=== PATIENT | female | born 1950 | race Caucasian/White ===

== ENCOUNTER → 2016-12-26 | Day surgery (SDC) | payer MEDICARE, BC ==
[~2016-12-26] MED LIST: LIDOCAINE HCL 1% 20ML VIAL (Pyxis) INJ ONE; SODIUM BICARBONATE 4.2% 5 MEQ/10 ML DISP.SYRIN IV ONE
== END | disposition home or self-care (01) ==
LOC: RAD 10:33
PROVIDERS: ATTEND Specialist
DX: E07.9 Disorder of thyroid, unspecified (principal)
CPT/HCPCS: 10022; 76942; 88172; 88173; J3490

== ENCOUNTER 2019-12-19 09:40 | Inpatient (IN) | payer MEDICARE, BC ==
[~2019-12-19] VITALS: Ht 165.1 cm; Wt 98.5 kg
[2019-12-19 10:48] LABS: BASOPHILS % 0.3 % (0.0-2.0); HEMATOCRIT. 35.3 % (36.0-48.0); HEMOGLOBIN. 12.6 g/dL (12.0-16.0); LYMPHOCYTES % 19.5 % (20.0-50.0); MEAN CORPUSCULAR HEMOGLOBIN 31.3 pg (28.0-32.0); MEAN CORPUSCULAR VOLUME 87.8 fL (81.0-99.0); MEAN PLATELET VOLUME 9.9 fl (7.4-10.4); MONOCYTES % 10.2 % (2.0-8.0); RED BLOOD CELL COUNT 4.02 mill/uL (4.2-5.4); RED CELL DISTRIBUTION WIDTH 12.9 % (11.6-14.6)
[2019-12-19 10:51] LABS: CHLORIDE 108 mEq/L (98-107); PLATELET 10 x1000/uL (130-400)
[2019-12-19 10:52] LABS: INR 1.4; PROTHROMBIN TIME 14.7 sec (9.6-11.0)
[2019-12-19 11:41] LABS: PLATELET ESTIMATE MARKEDLY DECREASED
[2019-12-19] MEDS ORDERED: DOCUSATE SODIUM 100MG CAPSULE PO PRN (13:15)
[2019-12-19] MEDS ORDERED: IPRATROPIUM/ALBUTEROL 0.5-3(2.5)MG/3ML NEB NEB PRN (13:15)
[2019-12-19] MEDS ORDERED: GUAIFENESIN 200MG/10ML SUGAR FREE UDC PO PRN (13:15)
[2019-12-19] MEDS ORDERED: NITROGLYCERIN 0.4MG TABLET SL SL PRN (13:15)
[2019-12-19] MEDS ORDERED: TRAMADOL 50MG TABLET PO PRN (13:15)
[2019-12-19] MEDS ORDERED: NA PHOS,M-B/NA PHOS,DI-BA ENEMA 118ML PR PRN (13:15)
[2019-12-19] MEDS ORDERED: LORAZEPAM 0.5MG TABLET PO PRN (13:15)
[2019-12-19] MEDS ORDERED: ONDANSETRON HCL 4MG/2ML INJ IV PRN (13:15)
[2019-12-19 13:51] VITALS: BP 132/60
[2019-12-19 14:00] VITALS: BP 132/60
[2019-12-19] MEDS ORDERED: APIX2.5T MT (14:34)
[2019-12-19] MEDS ORDERED: LOSA25TA26 MT (14:34)
[2019-12-19] MEDS ORDERED: ATOR20TA65 MT (14:34)
[2019-12-19] MEDS ORDERED: CETI-193 MT (14:34)
[2019-12-19 15:38] LABS: CREATINE KINASE MB FRACTION 2.2 ng/mL (0.5-3.6)
[2019-12-19 16:00] VITALS: BP 129/75
[2019-12-19] MEDS ORDERED: MORPHINE SULFATE 2 MG/ML CPJ (NOT FOR IM USE) IV PRN (17:30)
[2019-12-19] MEDS: METHYLPREDNISOLONE SOD SUCC 125 MG/2 ML VIAL IV SCH (17:45)
[2019-12-19 18:41] LABS: *AMPHETAMINES SCREEN URINE NEGATIVE (NEGATIVE); *BARBITURATES SCREEN URINE NEGATIVE (NEGATIVE); *BENZODIAZEPINES SCREEN URINE NEGATIVE (NEGATIVE)
[2019-12-19 18:42] LABS: *COCAINE SCREEN URINE NEGATIVE (NEGATIVE); CANNABINOID URINE SCREEN NEGATIVE (NEGATIVE); METHADONE URINE SCREEN NEGATIVE (NEGATIVE); OPIATES URINE SCREEN NEGATIVE (NEGATIVE); PHENCYCLIDINE URINE SCREEN NEGATIVE (NEGATIVE)
[2019-12-19 20:00] VITALS: BP 123/50
[2019-12-19] MEDS ORDERED: ZOLPIDEM TARTRATE 5MG TABLET PO PRN (21:00)
[2019-12-19] MEDS: FAMOTIDINE 20MG TABLET PO SCH (21:06)
[2019-12-19] MEDS: ACETAMINOPHEN 325MG TABLET PO PRN (22:44)
[2019-12-19 23:19] VITALS: BP 138/75
[2019-12-19 23:34] VITALS: BP 117/65
[2019-12-20] VITALS (8 sets, daily range): BP systolic 104–135; BP diastolic 51–70
[2019-12-20] MEDS: METHYLPREDNISOLONE SOD SUCC 125 MG/2 ML VIAL IV SCH ×2 (00:35→06:44)
[2019-12-20] MEDS: FAMOTIDINE 20MG TABLET PO SCH ×2 (07:56→21:31)
[2019-12-20] MEDS: PREDNISONE 20MG TABLET PO SCH (11:33)
[2019-12-20 12:27] LABS: BASOPHILS % 0.1 % (0.0-2.0); HEMATOCRIT. 33.7 % (36.0-48.0); LYMPHOCYTES % 12.1 % (20.0-50.0); MEAN CORPUSCULAR HEMOGLOBIN 31.1 pg (28.0-32.0); MEAN CORPUSCULAR VOLUME 87.1 fL (81.0-99.0); MEAN PLATELET VOLUME 10.2 fl (7.4-10.4); MONOCYTES % 1.9 % (2.0-8.0); NEUTROPHILS % 85.9 % (40.0-76.0); RED BLOOD CELL COUNT 3.87 mill/uL (4.2-5.4); RED CELL DISTRIBUTION WIDTH 12.8 % (11.6-14.6)
[2019-12-20 12:53] LABS: PLATELET 26 x1000/uL (130-400)
[2019-12-20 13:10] LABS: CREATINE KINASE MB FRACTION 4.5 ng/mL (0.5-3.6)
[2019-12-21] VITALS: BP 121/73
[2019-12-21 04:00] VITALS: BP 121/64
[2019-12-21 07:30] LABS: BASOPHILS % 0.1 % (0.0-2.0); HEMATOCRIT. 31.9 % (36.0-48.0); HEMOGLOBIN. 11.3 g/dL (12.0-16.0); LYMPHOCYTES % 12.3 % (20.0-50.0); MEAN CORPUSCULAR HEMOGLOBIN 30.7 pg (28.0-32.0); MEAN CORPUSCULAR VOLUME 87.2 fL (81.0-99.0); MEAN PLATELET VOLUME 10.3 fl (7.4-10.4); MONOCYTES % 8.2 % (2.0-8.0); NEUTROPHILS % 79.4 % (40.0-76.0); RED BLOOD CELL COUNT 3.67 mill/uL (4.2-5.4); RED CELL DISTRIBUTION WIDTH 12.7 % (11.6-14.6)
[2019-12-21 07:44] LABS: PLATELET 41 x1000/uL (130-400)
[2019-12-21 08:00] VITALS: BP 141/76
[2019-12-21] MEDS: FAMOTIDINE 20MG TABLET PO SCH ×2 (08:28→21:17)
[2019-12-21] MEDS: PREDNISONE 20MG TABLET PO SCH (08:28)
[2019-12-21 12:00] VITALS: BP 149/87
[2019-12-21 16:00] VITALS: BP 139/69
[2019-12-21] MEDS: ACETAMINOPHEN 325MG TABLET PO PRN (18:18)
[2019-12-22] VITALS: BP 130/70
[2019-12-22 04:00] VITALS: BP 116/62
[2019-12-22 07:12] LABS: BASOPHILS % 0.1 % (0.0-2.0); EOSINOPHILS % 0.1 % (0.0-5.0); HEMATOCRIT. 32.7 % (36.0-48.0); HEMOGLOBIN. 11.5 g/dL (12.0-16.0); LYMPHOCYTES % 19.5 % (20.0-50.0); MEAN CORPUSCULAR HEMOGLOBIN 31.2 pg (28.0-32.0); MEAN CORPUSCULAR VOLUME 88.2 fL (81.0-99.0); MEAN PLATELET VOLUME 9.5 fl (7.4-10.4); MONOCYTES % 9.3 % (2.0-8.0); PLATELET 61 x1000/uL (130-400)
[2019-12-22 08:00] VITALS: BP 134/74
[2019-12-22] MEDS: FAMOTIDINE 20MG TABLET PO SCH (08:14)
[2019-12-22] MEDS: PREDNISONE 20MG TABLET PO SCH (08:15)
[2019-12-22 09:19] VITALS: BP 134/74
[2019-12-23 13:11] LABS: ANA IFA Positive (.)
[2019-12-23 19:06] LABS: HLA CLASS 1 ANTIBODY Negative (Negative); IIb/IIIa ANTIBODY Positive (Negative); Ia/IIa ANTIBODY Negative (Negative); Ib/IX ANTIBODY Negative (Negative)
[2019-12-24 15:06] LABS: DRVVT LA >180.0 sec (0.0-47.0); DRVVT LA CONFIRMATION >2.8 ratio (0.8-1.2); DRVVT MIX LA >180.0 sec (0.0-47.0); PTT-LA >160.0 sec (0.0-51.9); PTT-LA MIX >160.0 sec (0.0-48.9)
[2019-12-25 05:11] LABS: HEXAGONAL PHASE PHOSPHOLIPID 0 sec (0-11)
== END 2019-12-22 11:13 | disposition home or self-care (01) | DRG 813 ==
LOC: ER 09:40 → EDBEDREQ 11:19 → EDBEDREQSVC 11:19 → 6WST 11:19 → EDBEDREQTM 11:20 → EDBEDREQ 11:20 → ENRESERV 11:46
PROVIDERS: ADMIT Internal Medicine; ATTEND Internal Medicine
PROC: 30233R1 Transfusion of Nonautologous Platelets into Peripheral Vein, Percutaneous Approach (ICD-10-PCS; principal; 2019-12-19)
DX: D69.3 Immune thrombocytopenic purpura (principal); I21.4 Non-ST elevation (NSTEMI) myocardial infarction; I10 Essential (primary) hypertension; E66.01 Morbid (severe) obesity due to excess calories; E78.5 Hyperlipidemia, unspecified; M54.9 Dorsalgia, unspecified; I25.10 Atherosclerotic heart disease of native coronary artery without angina pectoris; M32.9 Systemic lupus erythematosus, unspecified; Z79.01 Long term (current) use of anticoagulants; Z86.711 Personal history of pulmonary embolism; Z86.718 Personal history of other venous thrombosis and embolism; Z79.899 Other long term (current) drug therapy; Z68.36 Body mass index [BMI] 36.0-36.9, adult
CPT/HCPCS: 36415; 71045; 72146; 72148; 80048; 80053; 80061; 80305; 82550; 82553; 83036; 84484; 85025; 85049; 85613; 85651; 85732; 86022; 86140; 86256; 86850; 86870; 86900; 93005; 93306; 93970; 99285; J2270; J2930; J7512; P9034

== ENCOUNTER 2022-12-22 05:31 | Inpatient (IN) | payer MEDICARE, BC ==
[~2022-12-22] VITALS: Ht 165.1 cm; Wt 87.6 kg
[~2022-12-22 05:31] MED LIST changes: +ATOR20TA65 MT; +CETI-193 MT; -LIDOCAINE HCL 1% 20ML VIAL (Pyxis) INJ ONE; +LOSA25TA26 MT; -SODIUM BICARBONATE 4.2% 5 MEQ/10 ML DISP.SYRIN IV ONE
[2022-12-22] MEDS ORDERED: SODIUM CHLORIDE 0.9% 1,000 ML IV ONE ×2 (05:45→09:45)
[2022-12-22 06:26] LABS: PROTHROMBIN TIME 11.1 sec (9.6-11.0)
[2022-12-22 06:27] LABS: HEMATOCRIT. 28.9 % (36.0-48.0); HEMOGLOBIN. 9.9 g/dL (12.0-16.0); MEAN CORPUSCULAR HEMOGLOBIN 33.6 pg (28.0-32.0); MEAN CORPUSCULAR VOLUME 98.1 fL (81.0-99.0); MEAN PLATELET VOLUME 8.1 fl (7.4-10.4); PLATELET 102 x1000/uL (130-400); RED BLOOD CELL COUNT 2.94 mill/uL (4.2-5.4); RED CELL DISTRIBUTION WIDTH 17.7 % (11.6-14.6)
[2022-12-22 06:32] LABS: CHLORIDE 103 mEq/L (98-107)
[2022-12-22 06:56] LABS: BG BASE EXCESS 2.1 mmol/L (-2.0-2.0); BG CARBOXYHEMOGLOBIN 1.9 % (0.5-1.5); BG DEOXYHEMOGLOBIN 3.8 % (0.0-5.0); BG OXYGEN SATURATION 96.1 % (92.0-98.5); BG OXYHEMOGLOBIN 94.3 % (94.0-97.0); BG PCO2 29.8 mmHg (35.0-45.0); BG PH 7.524 (7.350-7.450); BG PO2 76.2 mmHg (75.0-100.0); BG SAMPLE SITE LEFT RADIAL; BG TOTAL HEMOGLOBIN 14.2 g/dL (12.0-18.0); BG VENT MODE ROOM AIR
[2022-12-22 08:24] LABS: PLATELET ESTIMATE SLIGHTLY DECREASED
[2022-12-22] MEDS ORDERED: CLONIDINE 0.1MG TABLET PO PRN (09:15)
[2022-12-22] MEDS ORDERED: GUAIFENESIN 200MG/10ML SUGAR FREE UDC PO PRN (09:15)
[2022-12-22] MEDS ORDERED: IPRATROPIUM/ALBUTEROL 0.5-3(2.5)MG/3ML NEB NEB PRN (09:15)
[2022-12-22] MEDS ORDERED: DOCUSATE SODIUM 100MG CAPSULE PO PRN (09:15)
[2022-12-22] MEDS ORDERED: ONDANSETRON HCL 4MG/2ML INJ IV PRN (09:15)
[2022-12-22] MEDS ORDERED: NITROGLYCERIN 0.4MG TABLET SL SL PRN (09:15)
[2022-12-22] MEDS ORDERED: TRAMADOL 50MG TABLET PO PRN (09:15)
[2022-12-22] MEDS ORDERED: MAGNESIUM/ALUMINUM HYDROXIDE/SIMETHICONE 30ML UDC PO PRN (09:15)
[2022-12-22 10:06] LABS: T4 FREE 1.99 ng/dL (0.76-1.46)
[2022-12-22] MEDS: METOPROLOL TARTRATE 25MG TABLET PO SCH ×2 (10:23→21:00)
[2022-12-22 11:58] LABS: VITAMIN B12 SERUM 519 pg/mL (211-911)
[2022-12-22] MEDS ORDERED: METOPROLOL TARTRATE 5MG/5ML VIAL IV NR ×2 (13:00→15:45)
[2022-12-22] MEDS ORDERED: DILTIAZEM HCL 30MG TABLET PO NR (15:30)
[2022-12-22] MEDS ORDERED: NALOXONE HCL 0.4MG/ML VIAL IV PRN (15:30)
[2022-12-22] MEDS ORDERED: ENOXAPARIN 60MG/0.6ML SYR SUBCUT NR (15:45)
[2022-12-22] MEDS ORDERED: METOPROLOL TARTRATE 25MG TABLET PO NR (15:45)
[2022-12-22] MEDS ORDERED: IOHEXOL-350 100 ML BOTTLE ONE (15:48)
[2022-12-22 15:56] LABS: MONOTEST NEGATIVE (NEGATIVE)
[2022-12-22 15:58] LABS: CREATINE KINASE 43 IU/L (26-192); CREATINE KINASE MB FRACTION < 1.0 ng/mL (0.5-3.6)
[2022-12-22 16:01] LABS: FOLIC ACID (FOLATE) SERUM > 20.00 ng/mL (>5.38)
[2022-12-22] MEDS ORDERED: VANCOMYCIN 1500MG in DEXTROSE 5% WATER 250ML IV SCH (20:00)
[2022-12-22 20:01] VITALS: BP 109/60
[2022-12-22 22:00] VITALS: BP 109/60
[2022-12-22] MEDS: FILGRASTIM-TBO 300 MCG/0.5 ML SYRINGE SQ SCH (22:31)
[2022-12-22] MEDS: MEROPENEM 1,000 MG in SODIUM CHLORIDE 0.9% 100 ML IV SCH (22:31)
[2022-12-23] VITALS (9 sets, daily range): BP systolic 95–132; BP diastolic 51–72
[2022-12-23] MEDS: ACETAMINOPHEN 325MG TABLET PO PRN (00:17)
[2022-12-23 00:28] LABS: CLARITY URINE TURBID (CLEAR); COLOR URINE DARK YELLOW (YELLOW); KETONES URINE 1+ (NEGATIVE); LEUKOCYTE ESTERASE URINE NEGATIVE (NEGATIVE); NITRITE URINE NEGATIVE (NEGATIVE); OCCULT BLOOD URINE NEGATIVE (NEGATIVE); PROTEIN URINE 2+ (NEGATIVE); SPECIFIC GRAVITY URINE 1.073 (1.005-1.030)
[2022-12-23 01:17] LABS: *AMPHETAMINES SCREEN URINE NEGATIVE (NEGATIVE); *BARBITURATES SCREEN URINE NEGATIVE (NEGATIVE); *BENZODIAZEPINES SCREEN URINE NEGATIVE (NEGATIVE); *COCAINE SCREEN URINE NEGATIVE (NEGATIVE); CANNABINOID URINE SCREEN NEGATIVE (NEGATIVE); METHADONE URINE SCREEN NEGATIVE (NEGATIVE); OPIATES URINE SCREEN NEGATIVE (NEGATIVE); PHENCYCLIDINE URINE SCREEN NEGATIVE (NEGATIVE)
[2022-12-23 01:19] LABS: CREATINE KINASE 23 IU/L (26-192); CREATINE KINASE MB FRACTION < 1.0 ng/mL (0.5-3.6)
[2022-12-23] MEDS ORDERED: CALC-1139 PO (03:39)
[2022-12-23] MEDS ORDERED: CARV12.545 PO (03:39)
[2022-12-23] MEDS ORDERED: FOLI-43 PO (03:39)
[2022-12-23] MEDS ORDERED: METH32TA2 PO (03:39)
[2022-12-23] MEDS ORDERED: HYDR200T35 PO (03:39)
[2022-12-23] MEDS ORDERED: PANT40TA51 PO (03:39)
[2022-12-23] MEDS: MEROPENEM 1,000 MG in SODIUM CHLORIDE 0.9% 100 ML IV SCH ×2 (03:43→12:58)
[2022-12-23] MEDS ORDERED: ENOXAPARIN 100MG/ML SYR SUBCUT SCH (06:00)
[2022-12-23 07:35] LABS: INR 1.1; PROTHROMBIN TIME 11.7 sec (9.6-11.0)
[2022-12-23 07:46] LABS: HEMATOCRIT. 25.5 % (36.0-48.0); HEMOGLOBIN. 8.8 g/dL (12.0-16.0); MEAN CORPUSCULAR HEMOGLOBIN 33.4 pg (28.0-32.0); MEAN CORPUSCULAR VOLUME 96.2 fL (81.0-99.0); MEAN PLATELET VOLUME 8.6 fl (7.4-10.4); PLATELET 82 x1000/uL (130-400); RED BLOOD CELL COUNT 2.65 mill/uL (4.2-5.4); RED CELL DISTRIBUTION WIDTH 17.4 % (11.6-14.6)
[2022-12-23 08:08] LABS: HIV SCREEN 4G Non Reactive (Non Reactive)
[2022-12-23] MEDS ORDERED: ASPIRIN 325MG EC TABLET PO SCH (09:00)
[2022-12-23] MEDS: FAMOTIDINE 20MG TABLET PO SCH (09:29)
[2022-12-23] MEDS: METOPROLOL TARTRATE 25MG TABLET PO SCH ×2 (09:29→21:00)
[2022-12-23 09:49] LABS: CHLORIDE 105 mEq/L (98-107)
[2022-12-23] MEDS: IRON SUCROSE COMPLEX 100 MG/5 ML ML IV SCH (09:55)
[2022-12-23 10:01] LABS: PHOSPHORUS 3.3 mg/dL (2.5-4.9)
[2022-12-23] MEDS: METOPROLOL TARTRATE 5MG/5ML VIAL IV PRN ×2 (10:35→16:38)
[2022-12-23] MEDS ORDERED: LIDOCAINE HCL 1% 10 MG/ML 10ML VIAL ONE (10:47)
[2022-12-23] MEDS ORDERED: POTASSIUM CHLORIDE 20MEQ TABLET SR PO NR (14:45)
[2022-12-23] MEDS: CEFEPIME 1,000 MG in DEXTROSE 5% WATER 50 ML IV SCH (16:24)
[2022-12-23] MEDS: APIXABAN 5 MG TABLET PO SCH (16:58)
[2022-12-23] MEDS ORDERED: DIGOXIN 500MCG/2ML AMP IV NR (17:00)
[2022-12-23] MEDS ORDERED: WARFARIN SODIUM 7.5MG TABLET PO NR (18:00)
[2022-12-23 18:29] LABS: PLATELET ESTIMATE DECREASED
[2022-12-23 19:10] LABS: BG BASE EXCESS -0.4 mmol/L (-2.0-2.0); BG CARBOXYHEMOGLOBIN 0.3 % (0.5-1.5); BG DEOXYHEMOGLOBIN 2.7 % (0.0-5.0); BG FRACTION INSPIRED OXYGEN 21; BG HCO3 ACT 22.6 mmol/L (22.0-26.0); BG METHEMOGLOBIN 0.2 % (0.0-1.5); BG OXYGEN SATURATION 97.3 % (92.0-98.5); BG OXYHEMOGLOBIN 96.8 % (94.0-97.0); BG PH 7.481 (7.350-7.450); BG PO2 98.4 mmHg (75.0-100.0); BG SAMPLE SITE RIGHT RADIAL; BG TOTAL HEMOGLOBIN 9.6 g/dL (12.0-18.0); BG VENT MODE ROOM AIR
[2022-12-23] MEDS ORDERED: VANCOMYCIN 1G PREMIX 200 ML IV SCH (20:00)
[2022-12-23] MEDS: BLOOD SUGAR DIAGNOSTIC STRIP TEST SCH (20:42)
[2022-12-23] MEDS: VANCOMYCIN 750MG PREMIX 150 ML IV SCH (21:01)
[2022-12-23 21:34] LABS: INR 1.1; PROTHROMBIN TIME 11.5 sec (9.6-11.0)
[2022-12-23] MEDS: FILGRASTIM-TBO 300 MCG/0.5 ML SYRINGE SQ SCH (22:02)
[2022-12-24] VITALS (10 sets, daily range): BP systolic 101–153; BP diastolic 55–99
[2022-12-24] MEDS: ACETAMINOPHEN 325MG TABLET PO PRN (05:21)
[2022-12-24] MEDS: METOPROLOL TARTRATE 5MG/5ML VIAL IV PRN (06:08)
[2022-12-24 06:36] LABS: HEMATOCRIT. 27.3 % (36.0-48.0); HEMOGLOBIN. 9.3 g/dL (12.0-16.0); MEAN CORPUSCULAR HEMOGLOBIN 33.4 pg (28.0-32.0); MEAN CORPUSCULAR VOLUME 98.4 fL (81.0-99.0); PLATELET 78 x1000/uL (130-400); RED BLOOD CELL COUNT 2.77 mill/uL (4.2-5.4)
[2022-12-24 06:41] LABS: INR 1.1; PROTHROMBIN TIME 11.3 sec (9.6-11.0)
[2022-12-24] MEDS: BLOOD SUGAR DIAGNOSTIC STRIP TEST SCH ×3 (07:59→21:00)
[2022-12-24] MEDS: APIXABAN 5 MG TABLET PO SCH ×2 (09:10→17:59)
[2022-12-24] MEDS: FAMOTIDINE 20MG TABLET PO SCH (09:11)
[2022-12-24] MEDS: METOPROLOL TARTRATE 25MG TABLET PO SCH ×2 (09:11→21:20)
[2022-12-24] MEDS: IRON SUCROSE COMPLEX 100 MG/5 ML ML IV SCH (10:53)
[2022-12-24] MEDS: VANCOMYCIN 750MG PREMIX 150 ML IV SCH (13:09)
[2022-12-24] MEDS: CEFEPIME 1,000 MG in DEXTROSE 5% WATER 50 ML IV SCH (17:52)
[2022-12-24] MEDS ORDERED: WARFARIN SODIUM 7.5MG TABLET PO NR (18:00)
[2022-12-24 18:33] LABS: PLATELET ESTIMATE DECREASED
[2022-12-24] MEDS: KETOROLAC 15MG/ML VIAL IV PRN (20:10)
[2022-12-24] MEDS: FILGRASTIM-TBO 300 MCG/0.5 ML SYRINGE SQ SCH (23:39)
[2022-12-24] MEDS: METHYLPREDNISOLONE SOD SUCC 40 MG/ML VIAL IV SCH (23:45)
[2022-12-24] MEDS: ZOLPIDEM TARTRATE 5MG TABLET PO PRN (23:53)
[2022-12-25] VITALS (10 sets, daily range): BP systolic 110–157; BP diastolic 44–99
[2022-12-25] MEDS: METOPROLOL TARTRATE 5MG/5ML VIAL IV PRN (01:57)
[2022-12-25] MEDS: KETOROLAC 15MG/ML VIAL IV PRN (04:52)
[2022-12-25] MEDS: METHYLPREDNISOLONE SOD SUCC 40 MG/ML VIAL IV SCH ×4 (04:58→23:11)
[2022-12-25] MEDS: VANCOMYCIN 750MG PREMIX 150 ML IV SCH (04:58)
[2022-12-25 06:52] LABS: BASOPHILS % 0.1 % (0.0-2.0); HEMATOCRIT. 27.5 % (36.0-48.0); HEMOGLOBIN. 9.3 g/dL (12.0-16.0); MEAN CORPUSCULAR HEMOGLOBIN 32.8 pg (28.0-32.0); MEAN CORPUSCULAR VOLUME 96.5 fL (81.0-99.0); MEAN PLATELET VOLUME 9.1 fl (7.4-10.4); MONOCYTES % 10.3 % (2.0-8.0); NEUTROPHILS % 78.6 % (40.0-76.0); PLATELET 82 x1000/uL (130-400); RED BLOOD CELL COUNT 2.85 mill/uL (4.2-5.4); RED CELL DISTRIBUTION WIDTH 17.7 % (11.6-14.6)
[2022-12-25 07:04] LABS: INR 1.5; PROTHROMBIN TIME 15.4 sec (9.6-11.0)
[2022-12-25 07:13] LABS: VANCOMYCIN TROUGH 31.8 ug/mL (5.0-10.0)
[2022-12-25] MEDS: BLOOD SUGAR DIAGNOSTIC STRIP TEST SCH ×4 (07:56→20:53)
[2022-12-25 08:56] LABS: BG BASE EXCESS -3.5 mmol/L (-2.0-2.0); BG CARBOXYHEMOGLOBIN 0.3 % (0.5-1.5); BG DEOXYHEMOGLOBIN 4.8 % (0.0-5.0); BG FRACTION INSPIRED OXYGEN 21; BG HCO3 ACT 20.4 mmol/L (22.0-26.0); BG METHEMOGLOBIN 0.2 % (0.0-1.5); BG OXYGEN SATURATION 95.2 % (92.0-98.5); BG OXYHEMOGLOBIN 94.7 % (94.0-97.0); BG PCO2 32.6 mmHg (35.0-45.0); BG PH 7.414 (7.350-7.450); BG PO2 78.7 mmHg (75.0-100.0); BG SAMPLE SITE RIGHT BRACHIAL; BG TOTAL HEMOGLOBIN 9.9 g/dL (12.0-18.0); BG VENT MODE ROOM AIR
[2022-12-25] MEDS: METOPROLOL TARTRATE 25MG TABLET PO SCH ×2 (10:07→20:53)
[2022-12-25] MEDS: APIXABAN 5 MG TABLET PO SCH ×2 (10:07→17:56)
[2022-12-25] MEDS: IRON SUCROSE COMPLEX 100 MG/5 ML ML IV SCH (10:08)
[2022-12-25] MEDS: FAMOTIDINE 20MG TABLET PO SCH (10:08)
[2022-12-25] MEDS: SODIUM HYPOCHLORITE SOLUTION (0.5%)FULL STRENGTH TOP SCH ×2 (10:12→17:00)
[2022-12-25] MEDS: POVIDONE-IODINE 10% TOPICAL SOLN 240ML TOP SCH ×2 (10:12→10:13)
[2022-12-25] MEDS ORDERED: LORAZEPAM 1MG TABLET PO NR (16:15)
[2022-12-25] MEDS ORDERED: LACTATED RINGERS 1,000 ML IV SCH (17:30)
[2022-12-25] MEDS: CEFEPIME 1,000 MG in DEXTROSE 5% WATER 50 ML IV SCH (17:57)
[2022-12-25] MEDS ORDERED: WARFARIN SODIUM 7.5MG TABLET PO NR (18:00)
[2022-12-25] MEDS ORDERED: VANCOMYCIN 750MG PREMIX 150 ML IV SCH ×2 (18:00→21:00)
[2022-12-25] MEDS: LACTATED RINGERS 1,000 ML IV SCH (20:52)
[2022-12-25] MEDS: FILGRASTIM-TBO 300 MCG/0.5 ML SYRINGE SQ SCH (20:53)
[2022-12-26] MEDS: METHYLPREDNISOLONE SOD SUCC 40 MG/ML VIAL IV SCH ×4 (05:36→22:42)
[2022-12-26] MEDS: BLOOD SUGAR DIAGNOSTIC STRIP TEST SCH ×4 (07:30→22:41)
[2022-12-26 08:00] VITALS: BP 118/52
[2022-12-26 08:03] LABS: HEMATOCRIT. 25.5 % (36.0-48.0); HEMOGLOBIN. 8.7 g/dL (12.0-16.0); MEAN CORPUSCULAR HEMOGLOBIN 33.1 pg (28.0-32.0); MEAN CORPUSCULAR VOLUME 96.8 fL (81.0-99.0); MEAN PLATELET VOLUME 8.9 fl (7.4-10.4); PLATELET 100 x1000/uL (130-400); RED BLOOD CELL COUNT 2.64 mill/uL (4.2-5.4); RED CELL DISTRIBUTION WIDTH 17.5 % (11.6-14.6)
[2022-12-26 08:07] LABS: PROTHROMBIN TIME 42.3 sec (9.6-11.0)
[2022-12-26 08:16] LABS: INR 4.3
[2022-12-26 09:02] LABS: BG BASE EXCESS -2.2 mmol/L (-2.0-2.0); BG CARBOXYHEMOGLOBIN 0.3 % (0.5-1.5); BG DEOXYHEMOGLOBIN 3.4 % (0.0-5.0); BG FRACTION INSPIRED OXYGEN 21; BG HCO3 ACT 21.3 mmol/L (22.0-26.0); BG METHEMOGLOBIN 0.3 % (0.0-1.5); BG OXYGEN SATURATION 96.6 % (92.0-98.5); BG PCO2 31.7 mmHg (35.0-45.0); BG PH 7.445 (7.350-7.450); BG PO2 86.5 mmHg (75.0-100.0); BG SAMPLE SITE LEFT BRACHIAL; BG VENT MODE ROOM AIR
[2022-12-26] MEDS: FAMOTIDINE 20MG TABLET PO SCH (09:52)
[2022-12-26] MEDS: METOPROLOL TARTRATE 25MG TABLET PO SCH ×2 (09:52→22:41)
[2022-12-26] MEDS: POVIDONE-IODINE 10% TOPICAL SOLN 240ML TOP SCH (09:52)
[2022-12-26] MEDS: SODIUM HYPOCHLORITE SOLUTION (0.5%)FULL STRENGTH TOP SCH ×2 (09:52→17:24)
[2022-12-26] MEDS: APIXABAN 5 MG TABLET PO SCH (09:53)
[2022-12-26 10:08] LABS: ANTI-DNA DOUBLE STRANDED QUANT < 1 IU/mL (0-9)
[2022-12-26] MEDS ORDERED: IOHEXOL-350 100 ML BOTTLE ONE (11:00)
[2022-12-26 11:09] LABS: PLATELET ESTIMATE DECREASED
[2022-12-26 12:00] VITALS: BP 138/69
[2022-12-26] MEDS: INSULIN LISPRO 100 UNITS/ML SUBCUT SCH ×3 (13:00→23:12)
[2022-12-26] MEDS ORDERED: DEXTROSE 50% WATER 50ML SYRINGE IV PRN (13:15)
[2022-12-26 16:00] VITALS: BP 139/88
[2022-12-26] MEDS: LACTATED RINGERS 1,000 ML IV SCH (16:17)
[2022-12-26] MEDS: CEFEPIME 1,000 MG in DEXTROSE 5% WATER 50 ML IV SCH (17:16)
[2022-12-26 20:00] VITALS: BP 116/50
[2022-12-26] MEDS: ZOLPIDEM TARTRATE 5MG TABLET PO PRN (22:41)
[2022-12-26] MEDS: VANCOMYCIN 750MG PREMIX 150 ML IV SCH (22:42)
[2022-12-27] VITALS: BP 119/62
[2022-12-27 04:00] VITALS: BP 138/58
[2022-12-27] MEDS: METHYLPREDNISOLONE SOD SUCC 40 MG/ML VIAL IV SCH ×3 (05:15→21:18)
[2022-12-27 06:10] LABS: MEAN CORPUSCULAR HEMOGLOBIN 32.3 pg (28.0-32.0); MEAN CORPUSCULAR VOLUME 98.8 fL (81.0-99.0); MEAN PLATELET VOLUME 8.6 fl (7.4-10.4); PLATELET 135 x1000/uL (130-400); RED BLOOD CELL COUNT 3.13 mill/uL (4.2-5.4); RED CELL DISTRIBUTION WIDTH 17.8 % (11.6-14.6)
[2022-12-27 06:12] LABS: PROTHROMBIN TIME 41.7 sec (9.6-11.0)
[2022-12-27 06:28] LABS: INR 4.2
[2022-12-27 06:43] LABS: HEMOGLOBIN. 10.1 g/dL (12.0-16.0)
[2022-12-27 08:00] VITALS: BP 107/83
[2022-12-27] MEDS: BLOOD SUGAR DIAGNOSTIC STRIP TEST SCH ×4 (08:10→21:20)
[2022-12-27] MEDS: INSULIN LISPRO 100 UNITS/ML SUBCUT SCH ×4 (08:10→21:00)
[2022-12-27] MEDS: METOPROLOL TARTRATE 25MG TABLET PO SCH ×2 (08:38→21:19)
[2022-12-27] MEDS: FAMOTIDINE 20MG TABLET PO SCH (08:44)
[2022-12-27] MEDS: SODIUM HYPOCHLORITE SOLUTION (0.5%)FULL STRENGTH TOP SCH ×2 (08:44→16:09)
[2022-12-27] MEDS: LACTATED RINGERS 1,000 ML IV SCH (08:45)
[2022-12-27] MEDS: POVIDONE-IODINE 10% TOPICAL SOLN 240ML TOP SCH (09:00)
[2022-12-27 12:00] VITALS: BP 124/66
[2022-12-27 13:11] LABS: RNP ANTIBODY < 0.2 AI (0.0-0.9)
[2022-12-27 13:13] LABS: PLATELET ESTIMATE NORMAL
[2022-12-27 15:06] LABS: ANTI-CARDIOLIPIN AB IGA < 9 APL U/mL (0-11); ANTI-CARDIOLIPIN AB IGG < 9 GPL U/mL (0-14); ANTI-CARDIOLIPIN AB IGM < 9 MPL U/mL (0-12)
[2022-12-27] MEDS: ACETAMINOPHEN 325MG TABLET PO PRN (16:02)
[2022-12-27] MEDS: CEFEPIME 1,000 MG in DEXTROSE 5% WATER 50 ML IV SCH (16:02)
[2022-12-27 16:43] VITALS: BP 116/77
[2022-12-27 17:08] LABS: HLA CLASS 1 ANTIBODY Negative (Negative); IIb/IIIa ANTIBODY Negative (Negative); Ia/IIa ANTIBODY Negative (Negative); Ib/IX ANTIBODY Negative (Negative)
[2022-12-27 20:00] VITALS: BP 114/45
[2022-12-27] MEDS ORDERED: ZOLPIDEM TARTRATE 5MG TABLET PO PRN (20:00)
[2022-12-27] MEDS: VANCOMYCIN 750MG PREMIX 150 ML IV SCH (21:20)
[2022-12-28] VITALS: BP 122/68
[2022-12-28 04:00] VITALS: BP 157/76
[2022-12-28] MEDS: LACTATED RINGERS 1,000 ML IV SCH (05:53)
[2022-12-28] MEDS: METHYLPREDNISOLONE SOD SUCC 40 MG/ML VIAL IV SCH ×3 (05:54→21:33)
[2022-12-28] MEDS: BLOOD SUGAR DIAGNOSTIC STRIP TEST SCH ×4 (05:54→21:32)
[2022-12-28 07:09] LABS: INR 3.4; PROTHROMBIN TIME 33.9 sec (9.6-11.0)
[2022-12-28 08:00] VITALS: BP 103/71
[2022-12-28] MEDS: INSULIN LISPRO 100 UNITS/ML SUBCUT SCH ×4 (08:10→21:00)
[2022-12-28] MEDS: POVIDONE-IODINE 10% TOPICAL SOLN 240ML TOP SCH (09:00)
[2022-12-28] MEDS: FAMOTIDINE 20MG TABLET PO SCH (09:55)
[2022-12-28] MEDS: SODIUM HYPOCHLORITE SOLUTION (0.5%)FULL STRENGTH TOP SCH ×2 (09:56→17:00)
[2022-12-28] MEDS: METOPROLOL TARTRATE 25MG TABLET PO SCH ×2 (09:56→21:35)
[2022-12-28 12:00] VITALS: BP 116/69
[2022-12-28 16:00] VITALS: BP 128/62
[2022-12-28] MEDS: CEFEPIME 1,000 MG in DEXTROSE 5% WATER 50 ML IV SCH (17:50)
[2022-12-28 20:00] VITALS: BP 129/66
[2022-12-28] MEDS: VANCOMYCIN 750MG PREMIX 150 ML IV SCH (21:33)
[2022-12-28] MEDS: ACETAMINOPHEN 325MG TABLET PO PRN (22:15)
[2022-12-29] VITALS: BP 138/65
[2022-12-29] MEDS: LACTATED RINGERS 1,000 ML IV SCH ×2 (02:15→20:49)
[2022-12-29 04:00] VITALS: BP 145/72
[2022-12-29] MEDS: METHYLPREDNISOLONE SOD SUCC 40 MG/ML VIAL IV SCH ×2 (04:39→17:05)
[2022-12-29 06:15] LABS: INR 2.3; PROTHROMBIN TIME 23.5 sec (9.6-11.0)
[2022-12-29] MEDS: BLOOD SUGAR DIAGNOSTIC STRIP TEST SCH ×4 (06:42→20:48)
[2022-12-29 08:00] VITALS: BP 156/54
[2022-12-29] MEDS: INSULIN LISPRO 100 UNITS/ML SUBCUT SCH ×4 (08:10→21:00)
[2022-12-29] MEDS: FAMOTIDINE 20MG TABLET PO SCH (10:25)
[2022-12-29] MEDS: METOPROLOL TARTRATE 25MG TABLET PO SCH ×2 (10:26→20:48)
[2022-12-29] MEDS: SODIUM HYPOCHLORITE SOLUTION (0.5%)FULL STRENGTH TOP SCH ×2 (10:26→17:31)
[2022-12-29] MEDS: POVIDONE-IODINE 10% TOPICAL SOLN 240ML TOP SCH (10:29)
[2022-12-29 12:00] VITALS: BP 145/80
[2022-12-29] MEDS ORDERED: GLUCAGON,HUMAN RECOMBINANT 1MG/VIAL IM NR (12:30)
[2022-12-29] MEDS ORDERED: LIDOCAINE HCL 1% 10 MG/ML 10ML VIAL ONE (12:45)
[2022-12-29 13:10] LABS: ATYPICAL P-ANCA <1:20 titer (Neg:<1:20); CYTOPLASMIC C-ANCA <1:20 titer (Neg:<1:20); PERINUCLEAR P-ANCA <1:20 titer (Neg:<1:20)
[2022-12-29 16:00] VITALS: BP 138/79
[2022-12-29] MEDS: CEFEPIME 1,000 MG in DEXTROSE 5% WATER 50 ML IV SCH (17:00)
[2022-12-29] MEDS: LACTULOSE 20G/30ML UDC PO SCH (17:00)
[2022-12-29] MEDS ORDERED: WARFARIN SODIUM 5MG TABLET PO SCH (18:00)
[2022-12-29 19:10] LABS: ANTI-MYELOPEROXIDASE AB < 0.2 units (0.0-0.9); ANTI-PROTEINASE 3 ABS < 0.2 units (0.0-0.9)
[2022-12-29 20:00] VITALS: BP 157/44
[2022-12-29] MEDS: VANCOMYCIN 750MG PREMIX 150 ML IV SCH (20:49)
[2022-12-30] VITALS (7 sets, daily range): BP systolic 116–150; BP diastolic 35–78
[2022-12-30] MEDS: METHYLPREDNISOLONE SOD SUCC 40 MG/ML VIAL IV SCH ×2 (05:26→17:52)
[2022-12-30 06:33] LABS: PROTHROMBIN TIME 20.2 sec (9.6-11.0)
[2022-12-30] MEDS: BLOOD SUGAR DIAGNOSTIC STRIP TEST SCH ×4 (06:56→20:34)
[2022-12-30] MEDS: INSULIN LISPRO 100 UNITS/ML SUBCUT SCH ×4 (08:10→20:34)
[2022-12-30] MEDS: POVIDONE-IODINE 10% TOPICAL SOLN 240ML TOP SCH (09:00)
[2022-12-30] MEDS: SODIUM HYPOCHLORITE SOLUTION (0.5%)FULL STRENGTH TOP SCH ×2 (09:00→17:00)
[2022-12-30] MEDS: LACTULOSE 20G/30ML UDC PO SCH ×2 (09:00→17:52)
[2022-12-30] MEDS: METOPROLOL TARTRATE 25MG TABLET PO SCH ×2 (11:04→20:25)
[2022-12-30] MEDS: FAMOTIDINE 20MG TABLET PO SCH (11:05)
[2022-12-30 13:11] LABS: ANA IFA Negative (.)
[2022-12-30] MEDS: ACETAMINOPHEN 325MG TABLET PO PRN (17:51)
[2022-12-30] MEDS: CEFEPIME 1,000 MG in DEXTROSE 5% WATER 50 ML IV SCH (17:52)
[2022-12-30] MEDS ORDERED: WARFARIN SODIUM 7.5MG TABLET PO SCH (18:00)
[2022-12-30] MEDS: LACTATED RINGERS 1,000 ML IV SCH (18:15)
== END 2022-12-30 20:43 | DRG 871 ==
LOC: ER 05:31 → MICUSO 07:04 → SUPCPDRO 09:10 → 3WST 19:23 → 5EST 12-23 18:33 → 7WST 12-26 19:26
PROVIDERS: ADMIT Internal Medicine; ATTEND Internal Medicine
PROC: 02HV33Z Insertion of Infusion Device into Superior Vena Cava, Percutaneous Approach (ICD-10-PCS; principal; 2022-12-23)
PROC: B5181ZA Fluoroscopy of Superior Vena Cava using Low Osmolar Contrast, Guidance (ICD-10-PCS; 2022-12-23)
PROC: B548ZZA Ultrasonography of Superior Vena Cava, Guidance (ICD-10-PCS; 2022-12-23)
PROC: 02HV33Z Insertion of Infusion Device into Superior Vena Cava, Percutaneous Approach (ICD-10-PCS; 2022-12-29)
PROC: B5181ZA Fluoroscopy of Superior Vena Cava using Low Osmolar Contrast, Guidance (ICD-10-PCS; 2022-12-29)
PROC: B548ZZA Ultrasonography of Superior Vena Cava, Guidance (ICD-10-PCS; 2022-12-29)
DX: A41.9 Sepsis, unspecified organism (principal); E43 Unspecified severe protein-calorie malnutrition; I21.4 Non-ST elevation (NSTEMI) myocardial infarction; G93.41 Metabolic encephalopathy; D61.818 Other pancytopenia; D69.3 Immune thrombocytopenic purpura; I47.1 Supraventricular tachycardia; L03.116 Cellulitis of left lower limb; D68.59 Other primary thrombophilia; R47.01 Aphasia; I73.01 Raynaud's syndrome with gangrene; I82.503 Chronic embolism and thrombosis of unspecified deep veins of lower extremity, bilateral; I12.9 Hypertensive chronic kidney disease with stage 1 through stage 4 chronic kidney disease, or unspecified chronic kidney disease; N18.9 Chronic kidney disease, unspecified; D50.9 Iron deficiency anemia, unspecified; M81.0 Age-related osteoporosis without current pathological fracture; M32.9 Systemic lupus erythematosus, unspecified; Z20.822 Contact with and (suspected) exposure to COVID-19; E78.00 Pure hypercholesterolemia, unspecified; I08.0 Rheumatic disorders of both mitral and aortic valves; I25.10 Atherosclerotic heart disease of native coronary artery without angina pectoris; E78.5 Hyperlipidemia, unspecified; I48.91 Unspecified atrial fibrillation; I49.3 Ventricular premature depolarization; Z79.01 Long term (current) use of anticoagulants; Z79.899 Other long term (current) drug therapy; Z68.32 Body mass index [BMI] 32.0-32.9, adult; Z91.81 History of falling; Z86.2 Personal history of diseases of the blood and blood-forming organs and certain disorders involving the immune mechanism; Z86.711 Personal history of pulmonary embolism; Z86.718 Personal history of other venous thrombosis and embolism; Z86.73 Personal history of transient ischemic attack (TIA), and cerebral infarction without residual deficits; Z82.49 Family history of ischemic heart disease and other diseases of the circulatory system
CPT/HCPCS: 36415; 36573; 36600; 70544; 70553; 71045; 71275; 72170; 73090; 73630; 73718; 75635; 80048; 80053; 80061; 80202; 80305; 81003; 82085; 82140; 82375; 82542; 82550; 82553; 82607; 82746; 82805; 82962; 83036; 83520; 83540; 83550; 83605; 83735; 84100; 84145; 84439; 84443; 84481; 84484; 85025; 85379; 85384; 85651; 86022; 86147; 86160; 86225; 86235; 86256; 86308; 86880; 87389; 87426; 87804; 92610; 93005; 93306; 93923; 93970; 97162; 97166; 99285; A6261; C1725; C1769; J0692; J1160; J1442; J1610; J1650; J1815; J1885; J2185; J2920; J3370; J3490; J7030; J7050; J7060; J7120; Q9967